=== PATIENT | female | born 1995 | race Caucasian/White ===

== ENCOUNTER 2020-03-23 03:32 | Emergency (ER) | payer OTHER, BC, SELFPAY ==
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
[2020-03-23 03:39] VITALS: BP 130/102; PULSE 94; RESP 20; TEMP 37.1; O2SAT 100
--- NOTE | 2020-03-23 03:44 | PC.NURSE ---
Report to MAX Saleh.
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
--- NOTE | 2020-03-23 04:00 | PC.NURSE ---
Patient's visitor out to desk verbalizing patient was upset with her RN and would like a different nurse. Patient assessed, care assumed for this patient.
--- NOTE | 2020-03-23 04:05 | PC.NURSE ---
Pt friend spoke with charge nurse stating, I did not know what I was doing and that she wanted a new nurse. Pt did not states any of this during my time in room.
--- NOTE | 2020-03-23 04:06 | PC.NURSE ---
Pt handed off to MAX Alvarado.
--- NOTE | 2020-03-23 04:10 | PC.NURSE ---
Patient taken to radiology.
[2020-03-23] MEDS: TETANUS,DIPHTHERIA,AC PERTUSSIS ADULT (0.5 ML) BOOSTRIX IM (05:24)
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
--- NOTE | 2020-03-23 05:50 | PC.NURSE ---
Patient's boyfriend Izaiah called at [phone] per request from patient. No answer, message left.
--- NOTE | 2020-03-23 05:51 | PC.NURSE ---
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
[2020-03-23 06:55] VITALS: BP 129/93; PULSE 85; RESP 13; TEMP 36.6; O2SAT 100
--- NOTE | 2020-04-05 06:33 | PC.NURSE ---
LATE ENTRY This note is being entered to document information to the patient's record. The following information was omitted on 03/23/20. Volar splint was placed on patient's right wrist per order from EDP.
== END 2020-03-23 07:03 | disposition home or self-care (01) ==
PROVIDERS: Emergency Provider Emergency Medicine
DX: S59.291A Other physeal fracture of lower end of radius, right arm, initial encounter for closed fracture (principal); S00.93XA Contusion of unspecified part of head, initial encounter; S80.212A Abrasion, left knee, initial encounter; S80.211A Abrasion, right knee, initial encounter; S70.312A Abrasion, left thigh, initial encounter; S60.512A Abrasion of left hand, initial encounter; Z23 Encounter for immunization; V86.56XA Driver of dirt bike or motor/cross bike injured in nontraffic accident, initial encounter
CPT/HCPCS: 29125; 70450; 70486; 71045; 72125; 72170; 73110; 73564; 90471; 90715; 99284; A9270

== ENCOUNTER 2025-02-10 12:31 | Emergency (ER) | payer BC, SELFPAY ==
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
--- OUTSIDE RECORDS SUMMARY | 2025-02-10 12:35 | XMS_ITS | Patient Health Record ---
Author Organization [facility] Address [address] [place] [address] Care Team Providers Care Network Management Specialist Name Role Phone [email or web address] Primary Care Provider Reason For Referral No Information Medications Medication SIG (Take, Route, Fr equency, Duration) Notes Start Date End Date Status Remeron 15 MG 1 tablet at bedtime Orally Once a day for 30 day(s) Active PROzac 10 MG 1 capsule Orally Onc e a day for 30 day(s) Active Ibuprofen 800 MG 1 tablet with food o r milk as needed Orally Three times a day for 10 days 07/03/2019 Active Social History Tobacco Use: Social History Observation Description Date Details (start date - stop date) Former Smoker NA - NA Tobacco Use/Smoking Question Answer Notes Are you a former smoker Plan Of Treatment No Information Insurance Providers Payer Name Payer Address Payer Phone Subscriber Number Group Number Insured Name Patient Relationship to Insured Coverage Start Date Coverage End Date [employer] [place], [facility] [address] [place] [address] [phone] [id number] Italo Antunez Self - patient is the insured 8
--- OUTSIDE RECORDS SUMMARY | 2025-02-10 12:35 | XMS_ITS | Clinical Summary ---
Author Organization [facility] Address [address] [place] [address] Care Team Providers Care Structural Steel Detailer Name Role Phone Debbie Randall MD Primary Care Provider Source Comments [facility],non-owned Affiliates and Associated Physician Practices is amultiple site organization consisting of ambulatory clinics and hospital sitesin [place], [place], [place] and [place]. This disclosure is being madepursuant to the Care Everywhere program and may not contain all information available regarding this patient. Last updated 18.[facility] Allergies No known active allergies Medications * This document contains information received from the source organization and may not represent a complete record from that organization. * Be aware that medications may not be up to date on this document. Alwaysverify current medications with the patient. DRYSOL 20 % solution 2 8 Active ibuprofen (MOTRIN) 800 MG tablet TK 1 T PO TID WF OR MILK FOR 10 DAYS PRN 0 9 Active QUEtiapine XR 24hr (SEROQUEL XR) 50 MG tablet Take 1 tablet 1 hr prior to bedtime for 4 nights, then take 2 tabs 1 hr prior to bedtime for 4 nights, then take 3 tabs 1 hour prior to bedtime for insomnia, anxiety & mood 78 tablet 0 Active venlafaxine XR 24hr (EFFEXOR XR) 75 MG capsule TAKE 1 CAPSULE BY MOUTH DAILY WITH BREAKFAST FOR ANXIETY OR DEPRESSION 30 capsule 2 0 Active venlafaxine XR 24hr (EFFEXOR XR) 75 MG capsule TAKE 1 CAPSULE BY MOUTH DAILY WITH BREAKFAST FOR ANXIETY OR DEPRESSION 30 capsule 2 0 Active buPROPion XL 24hr (WELLBUTRIN-XL) 150 MG tablet TAKE 1 TABLET BY MOUTH EVERY MORNING FOR DEPRESSION OR SMOKING CESSATION 30 tablet 3 0 Active clonazePAM (KLONOPIN) 1 MG tabletIndicatio ns:Anxiety May take 1/2 to 1 tablet up to twice a day if needed for panic. Limit use--rebound anxiety, dependence, accidents & memory impairment 60 tablet 2 0 Active Active Problems Problem Noted Date Diagnosed Date Anxiety 10/25/2011 Overview (10/25/2011): Patient reports anxiety, appears out of the [...] seen by psych. 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 Review of history identified poor sleep hygiene. Patient was advised on sleep habits and was advised to improve sleep hygiene, including: setting a time for bed, regularizing sleep times, sleeping at least 8-9 hours/day, getting TV out of room. Mood disorder 09/01/2011 05/08/2018 Overview (09/01/2011): Concern for depression v bipolar (1 or 2). Risk for biologic cause with neck surgery. Currently, not suicidal. Affecting school performance. Family Hx of Bipolar and schizopohrenia. Plan: - Therapy and counseling through BC/BS provider - Schedule with family psychiatrist. - TSH/T4 - screening CBC - Discussion of possible medications in the future based on other consultants and lab results - Discuss with school therapist for best in school v home-bound educational interventions for concentration problems. [phone] at [facility]. Screening for STI 09/01/2011 05/08/2018 Overview (09/01/2011): Per request in a non-symptomatic patient. * ONLY CALL PATIENT CELL PHONE WITH RESULTS * * [phone] * Plan: - HIV 1 and 2 ab - RPR - G/C chlamydia - HCG Immunizations Immunization Administration Dates Next Due HEP A VACCINE, ADULT 05/08/2018,09/12/2016 HEP B VACCINE ADOL/ADULT 2 DOSE 09/12/2016 HEP B VACCINE, ADULT 3 DOSE 10/30/2018, 8 Family History Medical History Relation Name Comments Drug Abuse Father Schizophrenia Maternal Grandfather Anesthesia Reaction Maternal Grandmother woke up during hysterectomy Anesthesia Reaction Mother Ap 'woke up during surgery Bipolar Disorder Mother Ap lamictal COPD - Chronic Obstructive Pulmonary Disease Mother Ap Cancer - Other Mother Ap Drug Abuse Mother Ap Relation Name Status Comments Father AutoAccident Maternal Grandfather Maternal Grandmother Mother Ap Alive Interstitial teresa ng disease Sister Alive Social History Tobacco Use Types Packs/Day Years Used Date Smoking Tobacco: Former Cigarettes 1 14.4 S tarted: 2010 Smokeless Tobacco: Never Tobacco Cessation:Ready to Q uit: No; Counseling Given: Yes Comments:vape Alcohol Use Standard Drinks/Week Comments Yes 0 (1 standard drink = 0.6 oz pur e alcohol) rarely Comments No Sex and Gender Information Value Date Recorded Sex Assigned at Not on file 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 Gender Identity Not on file Sexual Orientation Not on file 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 Not on file Not on file Last Filed Vital Signs Vital Sign Reading Time Taken Comments Blood Pressure 140/101 12/25/2019 1:36 PM CDT Pulse 107 12/25/2019 1:36 PM CDT Temperature 36.5 C (97.7 F) 12/25/2019 1:36 PM CDT Respiratory Rate 18 06/02/2018 10:08 PM CDT Oxygen Saturation 98% 10/30/2018 10:22 AM DYE RANGE FEEDER Inhaled Oxygen Concentration - - Weight 64.7 kg (142 lb 9.6 oz) 12/25/2019 1:36 P M CDT Height 157.5 cm (5' 2 ) 12/25/2019 1:36 PM CDT Body Mass Index 26.08 12/25/2019 1:36 PM CDT Plan of Treatment Health Maintenance Due Date Last Done Comments DTAP/TDAP/TD VACCINES (1 - Tdap) 2014 COVID-19 VACCINE ( - season) 2024 DEPRESSION SCREENING 09/26/2024 INFLUENZA VACCINE (Season Ended) 2025 ZOSTER VACCINE (1 of 2) 2045 HEPATITIS A VACCINE Completed 05/08/2018, 6 HEPATITIS C SCREENING Completed 05/16/2018 , 05/08/2018, 05/08/2018, Additional history exists HIV SCREENING Completed 05/16/2018, 03/26, 09/01/2011 HEPATITIS B VACCINE Completed 10/30/2018, 05/08/2018, 09/12/2016 HIB VACCINE Aged Out No longer eligi ble based on patient's age to complete this topic HPV VACCINE Aged Out No longer eligi ble based on patient's age to complete this topic MENINGOCOCCAL (Group B) VACCINE SHARED DECISION-MAKING Aged Out No longer eligible based on patient's age to complete this topic MENINGOCOCCAL GROUPS A/C/Y/W VACCINE Aged Out No longer eligible based on patient's age to complete this topic PNEUMOCOCCAL VACCINE Aged Out No long er eligible based on patient's age to complete this topic Procedures Procedure Name Priority Date/Time Associated Diagnosis Comments HEPATITIS C RNA QUANTITATIVE Routine 05/16/2018 8:37 AM CDT Positive hepatitis C antibody test HIV-1 HIV-2 ANTIBODY W/ REFLX CONFIRM Routine 05/16/2018 8:37 AM CDT Positive hepatitis C antibody test from Last 3 Months or Most Recently Relevant to Health Maintenance Results * HIV-1 HIV-2 ANTIBODY W/ REFLX CONFIRM (05/16/2018 8:37 AM CDT) [facility] HIV-1/HIV-2 Negative Negative 05/18/2018 9:18 PM CDT [employer] ([facility]) Comment: Based on the non-reactive anti-HIV (STARR) screen, the HIV Western blot is not indicated and therefore not performed. INTERPRETIVE INFORMATION: HIV-1,-2 w/Reflex to HIV-1 Western Blot This assay should not be used for blood donor screening, associated re-entry protocols, or for screening Human Cells, Tissues and Cellular and Tissue-Based Products (HCT/P). Performed by [facility]), [address] [place] [address] [email or web address], Rashaad Faith MD, Lab. Director Blood BLOOD SPECIMEN / Unknown Venipuncture / Unknown 05/16/2018 8:37 AM CDT 05/16/2018 8:37 AM CDT Debbie Randall MD LAB - SEROLOGY ORDERABLES Final Result [employer] [facility]) [address] * HEPATITIS C RNA QUANTITATIVE PCR (05/16/2018 8:37 AM CDT) [facility] HCV Quant by NAAT (IU/mL) 184,565 IU/mL 05/19/2018 2:33 AM CDT [employer] ([facility]) HCV Quant by NAAT (log IU/mL) 5.27 log IU/mL 05/19/2018 2:33 AM CDT [facility] ([facility]) Comment: INTERPRETIVE INFORMATION: HCV by Quantitative NAAT Normal range for this assay is Not Detected . The quantitative range of this assay is 10 - 100,000,000 IU/mL (1.0 - 8.0 log IU/mL). Lower limit of quantitation (LLoQ): 10 IU/mL (1.0 log IU/mL) LLoQ values do not apply to diluted specimens. A result of Not Detected does not rule out the presence of inhibitors in the patient specimen or hepatitis C virus RNA concentrations below the level of detection of the test. Care should be taken when interpreting any single viral load determination. This test should not be used for blood donor screening, associated re-entry protocols, or for screening Human Cell, Tissues and Cellular Tissue-Based Products (HCT/P). Performed by [facility]), [address] [place] [address] [email or web address], Rashaad Faith MD, Lab. Director Blood BLOOD SPECIMEN / Unknown Venipuncture / Unknown 05/16/2018 8:37 AM CDT 05/16/2018 8:37 AM CDT Debbie Randall MD LAB - CHEMISTRY ORDERABLES Toya benitez Result [employer] ([facility]) [address] [place] [address], [facility] from Last 3 Months or Most Recently Relevant to Health Maintenance Insurance [facility] Care Teams Structural Steel Detailer Relationship Specialty Start Date End Date Debbie Randall MD [address] [address] PCP - General Family Medicine 05/08/18
--- OUTSIDE RECORDS SUMMARY | 2025-02-10 12:35 | XMS_ITS | Patient Health Record ---
Author Organization [facility] Address [address] [place] [address] Care Team Providers Care Optimization Analyst Name Role Phone Howie Rivero Primary Care Provider Allergies No Known Allergies Reason For Referral No Information Medications Medication SIG (Take, Route, Fr equency, Duration) Notes Start Date End Date Status Fluconazole 150 MG 1 tablet Orally once for 10 days Active Social History Tobacco Use: Social History Observation Description Date Details (start date - stop date) Current Smoker NA - NA Sex Assigned At : Social History Observation Description Sex Assigned At Female Dont use, Tobacco Use/Smoking Question Answer Notes Are you a current every day smoker Problems Problem Type SNOMED Code ICD Code Onset Dates Problem Status W/U Status Risk Notes Problem Tobacco user (433038120) Nicotine dependence, unspecified, uncomplicated (F17.200) Active confirmed Problem Nicotine dependence (06558320) Nicotine dependence (F17.200) Active confirmed Problem Opioid use disorder (0564047891) Opioid use disorder (F11.99) Active confirmed Plan Of Treatment No Information Insurance Providers Payer Name Payer Address Payer Phone Subscriber Number Group Number Insured Name Patient Relationship to Insured Coverage Start Date Coverage End Date [employer] [address] [place] [phone] [id number] Italo Antunez Self - patient is the insured 3 [address] [place] [address] [id number] Italo Antunez Self - patient is the insured 2 3 Medications Administered Medication Instructions Date of Administration Dosage Notes Vivitrol 03/04/2022 380 mg Pt. tolerated well. See Clinical notes. Vivitrol 04/29/2022 380 mg Pt susan well. S ample used. Vivitrol 06/02/2022 380 mg Pt. tolerated well. No questions/concerns noted. Vivitrol 07/01/2022 380 mg Manufact by Stephan cardenas. Pt susan well. Medical (General) History Medical History History ICD Code Opioid use disorder Surgical History Surgery Date(Month/Year) Thyroid duct tonsillectomy Hospitalization History Reason Date(Month/Year) Dannielle 2012
--- OUTSIDE RECORDS SUMMARY | 2025-02-10 12:35 | XMS_ITS | Clinical Summary ---
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 Encounters Date Type Department Care Team Description 12/10/2024 2:00 PM CDT Office Visit [facility] [place] [address] [place] [address] [place] [address] Salma Garcia NP Menstrual cramps (Primary Dx) from Last 3 Months Immunizations Immunization Administration Dates Next Due Hep A, Adult 05/08/2018,09/12/2016 Hep B Vaccine 10/30/2018,05/08/2018,09/12/2016 Tdap 03/23/2020 Social History Tobacco Use Types Packs/Day Years Used Date Smoking Tobacco: Never Assessed Comments No Sex and Gender Information Value Date Recorded Sex Assigned at Not on file 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 Gender Identity Not on file Sexual Orientation Not on file Obstetrics History Last Filed Vital Signs Vital Sign Reading [...] 12/10/2024 1:58 PM CDT Plan of Treatment Health Maintenance Due Date Last Done Comments Cervical Cancer Screening 1995 Depression Screening 1995 Hepatitis C Screening 1995 Varicella Vaccines (1 of 2 - 13+ 2-dose series) 2008 Regular Well Visit/Exam 18-64 2013 Influenza Vaccine (Season Ended) 2025 DTaP/Tdap/Td Vaccine (2 - Td or Tdap) 03/23/2030 03/23/2020 Hepatitis B Screening Completed 10/30/2018 , 05/08/2018, 09/12/2016 HPV Vaccines Aged Out No longer eligi ble based on patient's age to complete this topic Pneumococcal vaccine <65 Aged Out No longer eligible based on patient's age to complete this topic Insurance [employer] Care Teams Garbage Truck Dispatcher Relationship Specialty Start Date End Date No, Physician PCP - General 05/14/20
--- OUTSIDE RECORDS SUMMARY | 2025-02-10 12:35 | XMS_ITS | Clinical Summary ---
Author Organization [facility] Address [address] [place] [address] Phone Care Team Providers Care Leather Goods Assembler Name Role Phone Unavailable Primary Care Provider Unavailabl e Allergies No known active allergies Medications buPROPion (WELLBUTRIN) 150 MG XL tablet TAKE 1 TABLET BY MOUTH EVERY MORNING FOR DEPRESSION OR SMOKING CESSATION 0 Active clonazePAM (KlonoPIN) 1 MG Tablet TK 1/2 TO 1 T PO UP TO BID IF NEEDED FOR PANIC 0 Active QUEtiapine (SEROQUEL XR) 50 MG TABLET SR 24 HR Take 1 tablet 1 hr prior to bedtime for 4 nights, then take 2 tabs 1 hr prior to bedtime for 4 nights, then take 3 tabs 1 hour prior to bedtime for insomnia, anxiety & mood 0 Active venlafaxine (EFFEXOR-XR) 75 MG CAPSULE SR 24 HR TK 1 C PO D WITH DONALDO FOR ANXIETY OR DEPRESSION 0 Active HYDROcodone-bryon taminophen (NORCO) 5-325 MG Tablet Take 1 Tab by mouth every 6 hours as needed for Moderate or more severe pain. 15 Tab 0 Active Active Problems No known active problems Social History Tobacco Use Types Packs/Day Years Used Date Smoking Tobacco: Every Day Cigarettes Smokeless Tobacco: Never Tobacco Cessation:Ready to Q uit: No; Counseling Given: Yes Alcohol Use Standard Drinks/Week Comments Yes 0 (1 standard drink = 0.6 oz pur e alcohol) Comments No Sex and Gender Information Value Date Recorded Sex Assigned at Not on file Legal Sex Female 3:45 PM CDT Gender Identity Not on file Sexual Orientation Not on file Last Filed Vital Signs Vital Sign Reading Time Taken Comments Blood Pressure 116/69 05/13/2020 5:11 PM CDT Pulse 86 05/13/2020 5:11 PM CDT Temperature 36.9 C (98.5 F) 05/13/2020 3:12 PM CDT Respiratory Rate 14 05/13/2020 5:11 PM CDT Oxygen Saturation 98% 05/13/2020 5:11 PM CDT Inhaled Oxygen Concentration - - Weight 52.2 kg (115 lb) 05/13/2020 3:12 PM CDT Height 157.5 cm (5' 2 ) 05/13/2020 3:12 PM CDT Body Mass Index 21.03 05/13/2020 3:12 PM CDT Plan of Treatment Health Maintenance Due Date Last Done Comments TdaP Immunization 1995 Hepatitis B Immunization (1 of 3 - 19+ 3-dose series) 2014 Influenza Immunization (#1) 2024 SARS-COV-2 Immunization ( - 2023- season) 2024 Respiratory Syncytial Virus (RSV) Immunization (Adult) (1 - 1-dose 75+ series) 2070 Meningococcal Immunization (ACWY) Aged Out No longer eligible based on patient's age to complete this topic Pneumococcal Immunization Combined Aged Out No longer eligible based on patient's age to complete this topic Rotavirus Immunization Aged Out No lo nger eligible based on patient's age to complete this topic Insurance [facility]
[2025-02-10 12:40] VITALS: BP 129/84; PULSE 71; RESP 14; TEMP 36.8; O2SAT 100
--- NOTE | 2025-02-10 13:27 | ED.GENADULT ---
HPI - General Adult General Chief complaint: Skin/Abscess/Foreign Body Stated complaint: itchy foot Patient presents for evaluation of itching to the left foot. She suspected she had athlete's foot about 3 weeks ago. She has been using the foot spray without improvement. Last night she rubbed her plantar aspect of the foot against the carpet repeatedly and now has a blister in the affected area. She is wondering what other therapy she can use to assist with her symptoms. Related Data Allergies Allergy/AdvReac Type Severity Reaction Status Date / Time No Known Allergies Allergy Mild Verified 05/14/15 14:58 Review of Systems Review of Systems: CONSTITUTIONAL: Denies fever, chills, or sweats. EYES: Denies visual changes, redness, or discharge. ENT: Denies rhinorrhea, congestion, sore throat, or otalgia. CARDIOVASCULAR: Denies chest pain, palpitations, or edema. RESPIRATORY: Denies cough or dyspnea. GASTROINTESTINAL: Denies abdominal pain, nausea, vomiting, or diarrhea. GENITOURINARY: Denies dysuria or hematuria. SKIN: Reports itching to the left foot. Reports blister to the left foot MUSCULOSKELETAL: Denies back pain, joint pain, or myalgia. NEUROLOGIC: Denies headache, numbness, dizziness, or weakness. PSYCHIATRIC: Denies anxiety or depression. [facility] Past Medical History Medical History Depression Surgical History Surgical History No pertinent past surgical history Family History Family History Mother Family history non-contributory Social History Social History Smoking packs per day: 0.5 Smoking cigarettes per day: 10.0 Smoking status: Current every day smoker Tobacco type: cigarettes Alcohol intake: current Alcohol use details: social Substance use: current Substance use type: marijuana Gender identity (if verbalized by the patient): Female Spiritual care concerns: No Exam Narrative: GENERAL: Well-appearing, well-nourished, and in no acute distress. HEAD: Normocephalic, atraumatic. EYES: PERRLA and EOMI. ENT: Nares clear, no rhinorrhea or epistaxis. Mucous membranes moist. Oropharynx without tonsillar hypertrophy exudate or other lesions. Bilateral TMs pearly barlow nonbulging NECK: Supple. No adenopathy or masses. No carotid bruits or JVD CHEST: Clear to auscultation. No respiratory distress. No wheezes rales or rhonchi HEART: Regular rate and rhythm. No murmur heard. Normal peripheral pulses. ABDOMEN: Soft, nontender, nondistended, normal active bowel sounds. EXTREMITIES: Normal range of motion. No edema. SKIN: there is an approximately 1.2 cm flat blistered lesion to the plantar aspect left foot. NEURO: No focal deficits. Alert and oriented x3. PSYCH: Normal mood and affect. Course Course Emergency Course: this is a 29-year-old female who presented for evaluation of itching associated with athlete's foot. She may try clotrimazole cream instead. Vistaril to assist with itching. Follow-up with primary provider. Go to the ER for worsening symptoms. Patient in agreement with plan of care. Level of Care: Express Care Visit Vital Signs Vital signs: Vital Signs Temperature 36.8 C 02/10/25 12:40 Pulse Rate 71 02/10/25 12:40 Respiratory Rate 14 02/10/25 12:40 Blood Pressure 129/84 02/10/25 12:40 Pulse Oximetry 100 02/10/25 12:40 Oxygen Delivery Room Air 02/10/25 12:40 Temperature 36.8 C 02/10/25 12:40 Pulse Rate 71 02/10/25 12:40 Respiratory Rate 14 02/10/25 12:40 Blood Pressure 129/84 02/10/25 12:40 Pulse Oximetry 100 02/10/25 12:40 Oxygen Delivery Room Air 02/10/25 12:40 Medical Decision Making Vital Signs Vital Signs: Vital Signs Temperature 36.8 C 02/10/25 12:40 Pulse Rate 71 02/10/25 12:40 Respiratory Rate 14 02/10/25 12:40 Blood Pressure 129/84 02/10/25 12:40 Pulse Oximetry 100 02/10/25 12:40 Oxygen Delivery Room Air 02/10/25 12:40 Temperature 36.8 C 02/10/25 12:40 Pulse Rate 71 02/10/25 12:40 Respiratory Rate 14 02/10/25 12:40 Blood Pressure 129/84 02/10/25 12:40 Pulse Oximetry 100 02/10/25 12:40 Oxygen Delivery Room Air 02/10/25 12:40 Discharge Plan Discharge Clinical Impression: Tinea pedis Patient Disposition: Home Condition: Stable Instructions: Antibiotic Form, Antifungals (On the skin), Tinea Corporis (ED) Additional Instructions: [employer] TREE SELLS CLOTRIMAZOLE CREAM WHICH MAY HELP YOUR SYMPTOMS Patient Language: Bulgarian Prescriptions: New hydroxyzine pamoate 25 mg capsule 25 - 50 mg PO Q6H PRN (Reason: ITCHING) Qty: 30 0RF Follow-up/Referrals: Wesley Estrada MD [Physician] - Time of Disposition: 12:58
== END 2025-02-10 13:02 | disposition home or self-care (01) ==
PROVIDERS: Emergency Provider Nurse Practitioner
DX: B35.3 Tinea pedis (principal); F17.210 Nicotine dependence, cigarettes, uncomplicated; F12.90 Cannabis use, unspecified, uncomplicated
CPT/HCPCS: 99213; G0463